=== PATIENT | male | born 1980 | race Hispanic/Latino ===

== ENCOUNTER → 2019-09-05 | Emergency (ER) | payer OTHER ==
--- NOTE | 2019-09-05 09:43 | RAD ---
Right ankle 3 views HISTORY: Right ankle injury. FINDINGS: Ankle mortise and talar dome are intact. Mild osteophytosis. Soft tissue swelling about the ankle. No acute fracture or dislocation are apparent. There is fluid distention of the joint capsule on the lateral view. IMPRESSION: Joint fluid. Soft tissue swelling. Minimal osteoarthritic changes.
--- NOTE | 2019-09-05 10:18 | RAD ---
Right foot 3 views HISTORY: Injury. FINDINGS: Lisfranc joint alignment is anatomic. Loss of plantar arch on the lateral view. Very mild o steophytosis. No acute fracture, dislocation, or aggressive osseous erosions. IMPRESSION: No acute osseous abnormalities are demonstrated. Pes planus.
== END ==
LOC: BURERS 08:41
DX: S90.01XA Contusion of right ankle, initial encounter (principal); W22.8XXA Striking against or struck by other objects, initial encounter